=== PATIENT | female | born 1975 | race Caucasian/White ===

== ENCOUNTER → 2021-06-21 15:08 | Outpatient (CLI) | payer OTHER, SELFPAY ==
--- NOTE | 2021-06-21 15:08 | MM_ITS ---
PROCEDURE INFORMATION: Exam: MG Bilateral Screening 3D Mammography Exam date and time: 06/21/2021 3:08 PM Age: 45 years old Clinical indication: Screening TECHNIQUE: Imaging protocol: Bilateral screening tomosynthesis and 2D mammography including computer-aided detection (CAD) when performed. COMPARISON: No relevant prior studies available. FINDINGS: MAMMOGRAPHY: Breast composition: There are scattered areas of fibroglandular density. Mass: No suspicious masses. Architectural distortion: No suspicious distortion. Calcifications: No suspicious calcifications. Asymmetric density: None. Skin thickening: None. Axillary adenopathy: None. IMPRESSION: 1. No mammographic evidence of malignancy. Annual screening is recommended unless otherwise clinically indicated. 2. Of note, patient reports having prior mammograms. Every attempt should be made to obtain prior mammograms for comparison. If/when these prior exams become available for comparison, an addendum will be made, if necessary. ASSESSMENT: BI-RADS Category 1: Negative
== END ==
PROVIDERS: Visit Provider Obstetrics & Gynecology
DX: Z12.31 Encounter for screening mammogram for malignant neoplasm of breast (principal)
CPT/HCPCS: 77063; 77067

== ENCOUNTER → 2021-11-30 11:34 | Outpatient (CLI) | payer OTHER, SELFPAY ==
[2021-11-30 12:41] LABS: Urine Pregnancy, HCG Qual. Negative (Negative)
== END ==
PROVIDERS: Visit Provider Internal Medicine Gastroenterology
DX: Z01.818 Encounter for other preprocedural examination (principal); Z11.52 Encounter for screening for COVID-19
CPT/HCPCS: 81025; C9803; U0003; U0005

== ENCOUNTER 2021-12-02 09:03 | Day surgery (SDC) | payer OTHER, SELFPAY ==
[2021-11-29 14:48] VITALS: BMI 45.4
[2021-12-02 09:19] VITALS: BP 142/93; PULSE 98; RESP 18; TEMP 37.1; O2SAT 99
--- NOTE | 2021-12-02 09:58 | P.PN_ITS ---
[facility] Anesthesia Checklist - Patient Identification Patient Identification: Arm Band - Structural Data Admitted From: Home Planned Operative Procedure/s: Colonoscopy Consent for Planned Operative Procedure(s) Verified: Yes - NPO Status Verified Time NPO: 07:00 (Prep) - Airway Assessment C-Spine Mobility Assessed: Yes TMJ Mobility Assessed: Yes Dentition: Good Dentition - Neurological Assessment Level of Consciousness: Awake Hx Seizures: No Numbness or tingling in extremities: No - Anesthesia Plan Anesthesia Risk discussed: Yes Anesthesia Plan: Verified ASA Class: II Anesthesia Type: MAC [facility] History I have reviewed the patient's past medical history: Yes Medical History: Reports:: Gastroesophageal Reflux Disease(GERD), Hypertension Denies:: Cancer, Diabetes Mellitus Type 1, Diabetes Mellitus Type 2, Internal Pacemaker, MRSA, Seizures *Have you ever received a pneumonia vaccine?: No *Have you received a flu vaccine this season?: No Other Medical History: Reports: Hypothyroidism Anesthesia experience/problems:: None Laterality Cases: Bilateral: Carpal Tunnel Release, Myringotomy (Ear Tubes) Other Surgeries: Yes: Appendectomy, Bariatric Surgery, . No: Pacemaker Amputation: No Fractures: No - *Social History Last grade of school completed: High school graduate Smoking Status: Former smoker Smoking End Date: 1991 Alcohol Intake: never Alcohol Intake Frequency:: holidays/special occasions only Substance Use Type: denies use *Occupational Status:: employed Housing: house Household Members: spouse *Travel in the last 8 weeks: None Family Hx:: Diabetes, Hypertension, Stroke, Thyroid Disorder
[2021-12-02 10:14] VITALS: O2SAT 99
--- NOTE | 2021-12-02 10:26 | HMH.SCOPE ---
- Procedure: Date: 12/02/21 Patient Date of :: 1975 Procedure Performed:: Screening colonoscopy Indications:: Family history of colon cancer Performing Provider:: Man Becker MD Referring Provider:: Sheila Medina APRN Sedation:: Propofol Procedure:: After placing the patient in the left lateral decubitus position, the colonoscopy was gently inserted into the rectum and under direct visualization advanced to the cecum which was identified by transillumination in the right lower quadrant, identification of the ileocecal valve, appendiceal orifice, and cecal strap. Color, texture, mucosa, and anatomy of the colon were carefully examined with the scope. Findings:: Anal canal: normal Rectum: normal Sigmoid colon: normal without polyps or inflammatory changes Descending colon: normal without polyps or inflammatory changes Splenic flexure: normal Transverse colon: normal without polyps or inflammatory changes Hepatic flexure: normal Ascending colon: normal without polyps or inflammatory changes Cecum: normal Terminal ileum: not visualized Impression: Normal colonoscopy Specimens:: None Recommendations:: Repeat screening examination in about FIVE years or so in view of family history Complications:: None Estimated blood obtained (mL): 0
[2021-12-02 10:29] VITALS: BP 132/76; PULSE 91; RESP 16; TEMP 36.2; O2SAT 96
[2021-12-02 10:39] VITALS: BP 123/59; PULSE 76; RESP 18; TEMP 36.2; O2SAT 98
[2021-12-02 10:49] VITALS: BP 136/81; PULSE 84; RESP 18; TEMP 36.2; O2SAT 99
[2021-12-02 11:05] VITALS: BP 122/84; PULSE 82; RESP 18; TEMP 36.2; O2SAT 99
== END 2021-12-02 11:05 | disposition home or self-care (01) ==
LOC: OUTP 09:04
PROVIDERS: PCP Nurse Practitioner Family; Visit Provider Internal Medicine Gastroenterology
PROC: 0DJD8ZZ Inspection of Lower Intestinal Tract, Via Natural or Artificial Opening Endoscopic (ICD-10-PCS; CPT 45378; principal; 2021-12-02 10:00)
DX: Z12.11 Encounter for screening for malignant neoplasm of colon (principal); K21.9 Gastro-esophageal reflux disease without esophagitis; I10 Essential (primary) hypertension; E03.9 Hypothyroidism, unspecified; Z90.49 Acquired absence of other specified parts of digestive tract; Z98.84 Bariatric surgery status; Z87.891 Personal history of nicotine dependence; Z83.3 Family history of diabetes mellitus; Z82.49 Family history of ischemic heart disease and other diseases of the circulatory system; Z82.3 Family history of stroke; Z83.49 Family history of other endocrine, nutritional and metabolic diseases; Z91.040 Latex allergy status
CPT/HCPCS: 45378

== ENCOUNTER → 2022-02-09 06:16 | Outpatient (CLI) | payer OTHER, SELFPAY | PROVIDERS: Visit Provider Nurse Practitioner Obstetrics & Gynecology | DX: N39.0 Urinary tract infection, site not specified (principal) | CPT/HCPCS: 87086 ==

== ENCOUNTER → 2022-06-23 15:23 | Outpatient (CLI) | payer OTHER, SELFPAY ==
--- NOTE | 2022-06-23 15:29 | XR_ITS ---
FINAL REPORT CLINICAL HISTORY: RT FOOT PAIN FINDINGS: 3 views of the right foot were obtained. There is no acute fracture or dislocation. There is a small plantar spur. The joint spaces are intact. The soft tissues are unremarkable. IMPRESSION: No acute process. Reviewed, Interpreted and Dictated by Moncho Vazquez MD Transcribed by Andres Hickman Authenticated and [facility]
== END ==
PROVIDERS: PCP Nurse Practitioner Family; Visit Provider Nurse Practitioner Family
DX: M79.671 Pain in right foot (principal)
CPT/HCPCS: 73630

== ENCOUNTER → 2023-06-26 14:53 | Outpatient (CLI) | payer BC, SELFPAY ==
--- NOTE | 2023-06-26 14:56 | MM_ITS ---
PROCEDURE INFORMATION: Exam: MG Bilateral Screening 3D Mammography Exam date and time: 06/26/2023 2:49 PM Age: 47 years old Clinical indication: Screening examination TECHNIQUE: Imaging protocol: Bilateral Screening tomosynthesis and 2D mammography including computer-aided detection (CAD) when performed. COMPARISON: 1. MG MM DIG SCREENING MAMM BI W/CAD 06/21/2021 3:27 PM 2. MG SCREENING DIGITAL BILATERAL MAMMOGRAM W/TOMOSYNTHESIS 06/13/2019 1:57 PM FINDINGS: MAMMOGRAPHY: Breast composition: There are scattered areas of fibroglandular density. Mass: None. Architectural distortion: None. Calcifications: No suspicious calcifications. Asymmetric density: None. Skin thickening: None. Axillary adenopathy: None. IMPRESSION: No mammographic evidence of malignancy. Annual screening is recommended unless otherwise clinically indicated. ASSESSMENT: BI-RADS Category 1: Negative
== END ==
PROVIDERS: PCP Nurse Practitioner Family; Visit Provider Obstetrics & Gynecology
DX: Z12.31 Encounter for screening mammogram for malignant neoplasm of breast (principal)
CPT/HCPCS: 77063; 77067

== ENCOUNTER 2023-10-09 09:38 | Outpatient (POV) | payer BC, SELFPAY | END 2023-10-09 23:59 | disposition home or self-care (01) | LOC: SC 09:38 | PROVIDERS: Visit Provider Specialist/Technologist | DX: Z00.00 Encounter for general adult medical examination without abnormal findings (principal) ==

== ENCOUNTER 2024-01-18 16:00 | Outpatient (CLI) | payer BC, SELFPAY ==
--- NOTE | 2024-01-18 16:01 | US_ITS ---
FINAL REPORT CLINICAL HISTORY: LUMP IN RIGHT AXILLA COMPARISON: None FINDINGS: Limited sonographic images were obtained of the soft tissues in the right axilla at the area of interest. There is no evidence of mass or adenopathy. IMPRESSION: Unremarkable exam. Reviewed, Interpreted and Dictated by Robert Tatum MD Transcribed by Tawnya Cheney Authenticated and . [facility]
== END 2024-01-18 23:59 | disposition home or self-care (01) ==
LOC: RAD 16:01
PROVIDERS: PCP Internal Medicine Adolescent Medicine; Visit Provider Obstetrics & Gynecology
DX: N63.31 Unspecified lump in axillary tail of the right breast (principal)
CPT/HCPCS: 76882